=== PATIENT | male | born 1985 | race Caucasian/White ===

== ENCOUNTER → 2021-02-20 | Outpatient (CLI) | payer SELFPAY ==
--- NOTE | 2021-02-20 09:09 | RAD ---
INDICATION: Reason: PELVIC AND PERINEAL PAIN / Spl. Instructions: / History: COMPARISON: None. TECHNIQUE: Grayscale and color ultrasound images obtained of the bilateral kidneys and bladder. FINDINGS: Right Kidney: 106 mm. Left Kidney: 99 mm. No hydronephrosis bilaterally. Bladder: Minimal urine within at time of exam. IMPRESSION: * No hydronephrosis bilaterally. Electronically signed by: Julio Meredith MD (02/20/2021 9:06 AM) [id number]
== END ==
LOC: US 08:02
PROVIDERS: ATTEND Specialist
DX: R10.2 Pelvic and perineal pain (principal)
CPT/HCPCS: 76770